=== PATIENT | female | born 1960 | race Caucasian/White ===

== ENCOUNTER 2016-06-25 23:11 | Emergency (ER) | payer MEDICARE, MEDICAID ==
[~2016-06-25] VITALS: Ht 157.5 cm; Wt 49.9 kg
--- NOTE | 2016-06-26 00:49 | PHYS DOC ---
Past Medical History Past Medical History: Bipolar Additional Past Medical Histor: [place] Past Surgical History: No Surgical History Alcohol Use: None Drug Use: None Adult General Chief Complaint Chief Complaint: MECHANICAL FALL HPI HPI Patient is a 56 year old female who presents by EMS from nursing facility for posterior head pain and bleeding since mechanical fall backwards. She hit the back of her head and on her bed. She has mild, achy pain located to her occiput. She denies loss of consciousness, numbness, tingling, weakness, dizziness, headache, vision changes, neck pain, chest pain, back pain, dyspnea, abdominal pain. Review of Systems Review of Systems Constitutional: Denies fever or chills [] Eyes: Denies change in visual acuity, redness, or eye pain [] HENT: Denies nasal congestion or sore throat [] Respiratory: Denies cough or shortness of breath [] Cardiovascular: No additional information not addressed in HPI [] GI: Denies abdominal pain, nausea, vomiting, bloody stools or diarrhea [] : Denies dysuria or hematuria [] Musculoskeletal: Denies back pain or joint pain [] Integument: Denies rash or skin lesions [] Neurologic: Denies focal weakness or sensory changes [] Endocrine: Denies polyuria or polydipsia [] Allergies Allergies Allergies Coded Allergies Type Severity Reaction Last Updated Verified No Known Drug Allergies 06/25/16 No Physical Exam Physical Exam Constitutional: Well developed, well nourished, no acute distress, non-toxic appearance. [] HENT: Normocephalic, bilateral external ears normal, oropharynx moist, no oral exudates, nose normal. Right occiput with nonbleeding abrasion with minimal tenderness and no palpable abnormality [] Eyes: PERRLA, EOMI. [] Neck: Normal range of motion, no tenderness, supple. [] Cardiovascular:Heart rate regular rhythm [] Lungs & Thorax: Bilateral breath sounds clear to auscultation [] Abdomen: Bowel sounds normal, soft, no tenderness. [] Skin: Warm, dry, no erythema, no rash. [] Back: No tenderness, no CVA tenderness. [] Extremities: No tenderness,ROM intact, no edema. [] Neurologic: Alert and oriented X 3, normal motor function, normal sensory function, no focal deficits noted. [] Psychologic: Affect normal, judgement normal, mood normal. [] Current Patient Data Vital Signs Vital Signs Date Time Temp Pulse Resp B/P Pulse Ox O2 Delivery O2 Flow Rate FiO2 06/26/16 01:36 101/49 06/26/16 01:06 97 Room Air 06/25/16 23:55 97.0 61 16 97.0 Radiology/Procedures Radiology/Procedures CT head and C-spine without contrast IMPRESSION CT Head: No acute intracranial CT abnormality. CT cervical spine: No acute osseous injury of the cervical spine. Electronically signed by: Marbin Gamez MD (Jun 26, 2016 01:19:42) Course & Med Decision Making Course & Med Decision Making Pertinent Labs and Imaging studies reviewed. (See chart for details) Workup is unremarkable. There is nothing to repair on her head. She would like to be discharged back to her nursing facility. She was transferred back via EMS. Return precautions given. She understands and agrees with plan. Dragon Disclaimer Dragon Disclaimer This electronic medical record was generated, in whole or in part, using a voice recognition dictation system. Departure Departure Impression: Primary Impression: Closed head injury Additional Impression: Scalp abrasion Disposition: 01 HOME, SELF-CARE Condition: STABLE Referrals: MARVIN YU MD (PCP) Patient Instructions: Head Injury, Adult, [id number] Additional Instructions: Follow-up with your primary care doctor within one week. Return for any concerns. Problem Qualifiers Primary Impression: Closed head injury Encounter type: initial encounter Qualified Code: S09.90XA - Unspecified injury of head, initial encounter Additional Impression: Scalp abrasion Encounter type: initial encounter Qualified Code: S00.01XA - Abrasion of scalp, initial encounter Jane LOERA MD Jun 26, 2016 00:49
--- NOTE | 2016-06-26 01:20 | RAD ---
PROCEDURE CT head without contrast. CT cervical spine without contrast. HISTORY Fall with posterior head injury, pain and scalp laceration TECHNIQUE Exposure: One or more of the following individualized dose reduction techniques were utilized for this exam: 1. Automated exposure control. 2. Adjustment of the mA and/or kV according to patient size. 3. Use of iterative reconstruction technique. [address] imaging skullbase to vertex. Helical noncontrast CT imaging of the cervical spine. COMPARISON No prior FINDINGS CT Head: Generalized brain atrophy no intracranial hemorrhage, mass, hydrocephalus or infarction. 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 Orbits, paranasal sinuses, mastoids, skullbase and calvarium are unremarkable. CT cervical spine: Craniocervical junction intact. Cervical vertebral body height and alignment intact. No fracture of the cervical spine. There mild disc osteophytes C5-C6 and C6-C7. There may be left foraminal stenosis at C5-C6. Lung apices and paraspinal tissues are unremarkable. IMPRESSION CT Head: No acute intracranial CT abnormality. CT cervical spine: No acute osseous injury of the cervical spine. Electronically signed by: Marbin Gamez MD (Jun 26, 2016 01:19:42)
[2016-06-26 01:36] VITALS: BP 101/49
== END 2016-06-26 02:25 | disposition home or self-care (01) ==
LOC: ER 23:11
DX: S00.01XA Abrasion of scalp, initial encounter (principal); F31.9 Bipolar disorder, unspecified; W01.198A Fall on same level from slipping, tripping and stumbling with subsequent striking against other object, initial encounter; Y93.89 Activity, other specified; Y92.89 Other specified places as the place of occurrence of the external cause; Y99.8 Other external cause status
CPT/HCPCS: 70450; 72125; 99284-25

== ENCOUNTER 2016-11-09 10:13 | Emergency (ER) | payer MEDICARE, OTHER ==
[~2016-11-09] VITALS: Ht 172.7 cm; Wt 65.8 kg
--- NOTE | 2016-11-09 11:05 | PHYS DOC ---
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 She also states she's had nausea and vomiting for the last 3 days which she has not had anything to eat or drink. She states that she has had 3 diarrhea stools in the last 24 hours as well as 3 emesis. She denies blood being in the emesis or stool. Patient states that they were providing her with insurance until 3 days ago. Patient denies fever, chills, abdominal pain or discomfort. Review of Systems Review of Systems Constitutional: Denies fever or chills [] Eyes: Denies change in visual acuity, redness, or eye pain [] HENT: nasal congestion denies sore throat [] Respiratory: Denies cough or shortness of breath [] Cardiovascular: No additional information not addressed in HPI [] GI: Denies abdominal pain, complaint of nausea, vomiting, and diarrhea [] : Denies dysuria or hematuria [] Musculoskeletal: Denies back pain or joint pain [] Integument: Denies rash or skin lesions [] Neurologic: Denies headache, focal weakness or sensory changes [] Endocrine: Denies polyuria or polydipsia [] Current Medications Current Medications Current Medications Medications (Trade) Dose Ordered Sig/Edison Start Time Stop Time Status Last Admin Dose Admin Ondansetron HCl (Zofran) 4 mg 1X ONCE 11/09/16 11:15 11/09/16 11:16 DC 11/09/16 11:28 4 MG Sodium Chloride 1,000 ml @ 1,000 mls/hr 1X ONCE 11/09/16 11:15 11/09/16 12:14 DC 11/09/16 11:27 1,000 MLS/HR Allergies Allergies Allergies Coded Allergies Type Severity Reaction Last Updated Verified No Known Drug Allergies 06/25/16 No Physical Exam Physical Exam Constitutional: Well developed, well nourished, no acute distress, non-toxic appearance. [] HENT: Normocephalic, atraumatic, bilateral external ears normal, oropharynx moist, no oral exudates, nose normal. Bilateral tympanic membranes appear to be normal. Patient with crustiness noted inside the naris. Patient also noted to have lips that appear to be very dry with mucous membranes being tacky. Eyes: PERRLA, EOMI, conjunctiva normal, no discharge. [] Neck: Normal range of motion, no tenderness, supple, no stridor. [] Cardiovascular:Heart rate regular rhythm, no murmur [] Lungs & Thorax: Bilateral breath sounds clear to auscultation [] Abdomen: Bowel sounds hypoactive, soft, no tenderness, no masses, no pulsatile masses. [] Skin: Warm, dry, no erythema, no rash. [] Back: No tenderness Extremities: No tenderness, no cyanosis, no clubbing, ROM intact, no edema. [] Neurologic: Alert and oriented X 3, normal motor function, normal sensory function, no focal deficits noted. [] Psychologic: Affect normal, judgement normal, mood normal. [] Current Patient Data Vital Signs Vital Signs Date Time Temp Pulse Resp B/P (MAP) Pulse Ox O2 Delivery O2 Flow Rate FiO2 11/09/16 10:15 98.2 78 20 118/76 (90) 93 Room Air 98.2 Lab Values Laboratory Tests Test 11/09/16 11:25 White Blood Count 6.3 x10^3/uL (4.0-11.0) Red Blood Count 4.36 x10^6/uL (3.50-5.40) Hemoglobin 13.1 g/dL (12.0-15.5) Hematocrit 39.1 % (36.0-47.0) Mean Corpuscular Volume 90 fL (79-100) Mean Corpuscular Hemoglobin 30 pg (25-35) Mean Corpuscular Hemoglobin Concent 34 g/dL (31-37) Red Cell Distribution Width 14.3 % (11.5-14.5) Platelet Count 215 x10^3/uL (140-400) Neutrophils (%) (Auto) 49 % (31-73) Lymphocytes (%) (Auto) 28 % (24-48) Monocytes (%) (Auto) 8 % (0-9) Eosinophils (%) (Auto) 14 % (0-3) H Basophils (%) (Auto) 1 % (0-3) Neutrophils # (Auto) 3.1 x10^3uL (1.8-7.7) Lymphocytes # (Auto) 1.8 x10^3/uL (1.0-4.8) Monocytes # (Auto) 0.5 x10^3/uL (0.0-1.1) Eosinophils # (Auto) 0.9 x10^3/uL (0.0-0.7) H Basophils # (Auto) 0.1 x10^3/uL (0.0-0.2) Sodium Level 145 mmol/L (136-145) Potassium Level 4.2 mmol/L (3.5-5.1) Chloride Level 108 mmol/L (98-107) H Carbon Dioxide Level 34 mmol/L (21-32) H Anion Gap 3 (6-14) L Blood Urea Nitrogen 18 mg/dL (7-20) Creatinine 0.7 mg/dL (0.6-1.0) Estimated GFR (Cockcroft-Gault) 85.9 BUN/Creatinine Ratio 26 (6-20) H Glucose Level 87 mg/dL (70-99) Calcium Level 8.4 mg/dL (8.5-10.1) L Total Bilirubin 0.2 mg/dL (0.2-1.0) Aspartate Amino Transferase (AST) 22 U/L (15-37) Alanine Aminotransferase (ALT) 22 U/L (14-59) Alkaline Phosphatase 53 U/L (46-116) Total Protein 7.0 g/dL (6.4-8.2) Albumin 3.0 g/dL (3.4-5.0) L Albumin/Globulin Ratio 0.8 (1.0-1.7) L Laboratory Tests 11/09/16 11:25 Laboratory Tests 11/09/16 11:25 EKG EKG [] Radiology/Procedures Radiology/Procedures [] Course & Med Decision Making Course & Med Decision Making Pertinent Labs and Imaging studies reviewed. (See chart for details) CBC, CMP are within normal limits. Patient refuses to provide us with a urine refuses to allow us to straight catheter. Patient was provided with fluids, she was also provided with Zofran. She is able to take by mouth fluids by mouth with no difficulty. No emesis as been noted throughout her emergency department stay which is been a little over 2 hours. Patient is requesting a food tray at this time patient will be provided with a food tray she'll be discharged back to the nursing facility with recommendations for Zofran. Patient agrees with discharge instructions treatment regimens and follow-up recommendations. [] Dragon Disclaimer Dragon Disclaimer This electronic medical record was generated, in whole or in part, using a voice recognition dictation system. Departure Departure Impression: Primary Impression: URI (upper respiratory infection) Additional Impression: Nausea vomiting and diarrhea Disposition: HOME, SELF-CARE Condition: STABLE Referrals: MARVIN YU MD (PCP) Patient Instructions: Diarrhea, [id number], Diet for Diarrhea, Adult, Nausea and Vomiting, [id number], Upper Respiratory Infection, Adult, [id number] Additional Instructions: Activity as tolerated. Medications as prescribed, Zofran for nausea vomiting. Encourage plenty of fluids. Follow-up primary care physician next 3-5 days. Return back to emergency department sign symptoms of become worse. Scripts Ondansetron (ZOFRAN ODT) 4 Mg Tab.rapdis 1 TAB SL Q8HRS, #10 TAB Prov: ARVIND ALARCON APRN 11/09/16 Problem Qualifiers ARVIND ALARCON APRN Nov 09, 2016 11:05
[2016-11-09] MEDS ORDERED: IV NORMAL SALINE 1000ML BAG 1,000 ML IV ONE (11:15)
[2016-11-09] MEDS ORDERED: ONDANSETRON PF 4 MG/2 ML VIAL. IV ONE (11:15)
[2016-11-09 11:34] LABS: BASO # 0.1 x10^3/uL (0.0-0.2); BASO % 1 % (0-3); EOS % 14 % (0-3); HEMATOCRIT 39.1 % (36.0-47.0); HEMOGLOBIN 13.1 g/dL (12.0-15.5); LYMPH # 1.8 x10^3/uL (1.0-4.8); LYMPH % 28 % (24-48); MEAN CORPUSCULAR HEMOGLOBIN 30 pg (25-35); MEAN CORPUSCULAR HGB CONC 34 g/dL (31-37); MEAN CORPUSCULAR VOLUME 90 fL (79-100); MONO % 8 % (0-9); NEUT % 49 % (31-73); PLATELET COUNT 215 x10^3/uL (140-400); RED BLOOD COUNT 4.36 x10^6/uL (3.50-5.40); RED CELL DISTRIBUTION WIDTH 14.3 % (11.5-14.5); WHITE BLOOD COUNT 6.3 x10^3/uL (4.0-11.0)
[2016-11-09 11:42] LABS: CALCIUM 8.4 mg/dL (8.5-10.1); CREATININE 0.7 mg/dL (0.6-1.0); GFR 85.9; POTASSIUM 4.2 mmol/L (3.5-5.1)
[2016-11-09 11:48] LABS: ALBUMIN/GLOBULIN RATIO 0.8 (1.0-1.7); TOTAL BILIRUBIN 0.2 mg/dL (0.2-1.0)
[2016-11-09] MEDS ORDERED: ONDA4TAB10 SL (12:40)
[2016-11-09 12:43] VITALS: BP 113/60
== END 2016-11-09 13:30 | disposition home or self-care (01) ==
LOC: ER 10:13
DX: J06.9 Acute upper respiratory infection, unspecified (principal); G10 Huntington's disease
CPT/HCPCS: 36415; 80053; 85027; 96361; 96374; 99284; J2405; J7030